=== PATIENT | female | born 1950 | race Caucasian/White ===

== ENCOUNTER 2019-03-08 08:38 | Outpatient (CLI) | payer MEDICARE ==
--- NOTE | 2019-03-08 11:20 | CT ---
EXAM: CT ABDOMEN AND PELVIS HISTORY: Constipation. Irritable bowel syndrome. Left quadrant pain. Bloating. COMPARISON: None. Procedure: Multiple contiguous axial images were obtained and a CT of the abdomen and pelvis with IV contrast. C oronal reformats were performed. FINDINGS: Lower Chest: within normal limits. Vessels: Normal caliber aorta. No periaortic fat stranding Heart: Normal heart size. No significant pericardial fluid Abdomen: Portal vein:Patent Gallbladder: No calcified gallstones. Normal caliber wall. Liver: within normal limits. Pancreas: within normal limits. Spleen: within normal limits. Adrenals: within normal limits. Kidneys: Symmetric enhancement. Bilaterally no obstructive uropathy. Peritoneum: No ascites or free air, no fluid collection. Bowel: Limited evaluation due to lack of complete oral contrast opacification. There does appear to b e mucosal thickening involving jejunal loops in the left hemiabdomen. No associated obstruction given that contrast does pass from proximal small bowel loops into more distal small bowel loops and into the colon. Ileocecal junction is unremarkable. Normal caliber appendix. Contrast and fecal material in a nondistended, nondilated colon. Mesentery and Retroperitoneum: No enlarged mesenteric or retroperitoneal lymph nodes. Abdominal Wall: within normal limits. Pelvis: Reproductive Organs: Surgically absent uterus Pelvis: within normal limits. Bladder: within normal limits. Bones: There are no lytic or blastic lesions. 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 IMPRESSION: 1. Nonspecific mucosal prominence of proximal small bowel loops. Findings may be in part due to inade quate distention. Consider dedicated small bowel series versus CT enterography.
== END 2019-03-08 08:39 | disposition home or self-care (01) ==
LOC: SCSCT 08:38
PROVIDERS: ATTEND Physician Assistant Medical
DX: R10.12 Left upper quadrant pain (principal); K58.1 Irritable bowel syndrome with constipation
CPT/HCPCS: 74177; 82565